=== PATIENT | female | born 2000 | race Caucasian/White ===

== ENCOUNTER 2022-02-08 16:11 | Emergency (ER) | payer BC ==
[2022-02-08] MEDS ORDERED: PROPOFOL 20 ML ONE (16:21)
== END 2022-02-08 17:57 | disposition home or self-care (01) ==
LOC: CSHERS 16:11
DX: S83.014A Lateral dislocation of right patella, initial encounter (principal); W22.8XXA Striking against or struck by other objects, initial encounter
CPT/HCPCS: 27560; 99152; J2704